=== PATIENT | male | born 1975 | race Caucasian/White ===

== ENCOUNTER 2017-05-04 22:17 | Emergency (ER) | payer OTHER ==
[2017-05-04 22:30] VITALS: BP 116/74; PULSE 88; TEMP 98; BMI 28.2
[2017-05-04] MEDS ORDERED: KETOROLAC TROMETHAMINE 30 MG/1 ML VIAL IVPUSH ONE (23:21)
[2017-05-04] MEDS ORDERED: SODIUM CHLORIDE 0.9% 500 ML INFUS.BAG IV ONE (23:21)
--- NOTE | 2017-05-04 23:58 | PDOC ---
History of Present Illness - History of Present Illness Initial Comments: 05/04/17 23:51 Patient is a 41 year old male with a history of sickle cell who presents with left sided chest pain following a mechanical fall. The patient reports slipping on water earlier today and falling onto his left chest. He denies any loss of consciousness or other injuries besides sharp left sided chest and back pain worse with coughing. He tried some ibuprofen at home for pain with some relief. He reports that he has never had a pain crisis or acute chest and that he has a high hemoglobin. <Braulio Fuentes - Last Filed: 05/05/17 02:54> <Ashley Miranda - Last Filed: 05/05/17 20:16> - General Chief Complaint: Pain Stated Complaint: L SIDED PAIN S/P FALL Time Seen by Provider: 05/04/17 22:29 Past History - Past Medical History Other medical history: Sicle cell - Psycho/Social/Smoking Cessation Hx Suicidal Ideation: No Smoking History: Never smoked Information on smoking cessation initiated: No Hx Alcohol Use: No Drug/Substance Use Hx: No Substance Use Type: None <Braulio Fuentes - Last Filed: 05/05/17 02:54> <Ashley Miranda - Last Filed: 05/05/17 20:16> - Past Medical History Allergies/Adverse Reactions: Allergies Allergy/AdvReac Type Severity Reaction Status Date / Time No Known Allergies Allergy Verified 05/04/17 22:26 Home Medications: Ambulatory Orders Oxycodone HCl/Acetaminophen [Percocet 5/325 -] 1 tab PO Q6H #14 tablet MDD 4 Review of Systems - Review of Systems Constitutional: No: Chills, Fever HEENTM: No: Recent change in vision Respiratory: No: Cough, Shortness of Breath Cardiac (ROS): Yes: Chest Pain. No: Palpitations ABD/GI: No: Constipated, Diarrhea, Nausea, Vomiting : No: Dysuria Musculoskeletal: Yes: Back Pain Integumentary: No: Rash Neurological: No: Headache, Numbness, Tingling, Weakness <Braulio Fuentes - Last Filed: 05/05/17 02:54> *Physical Exam - Vital Signs Last Vital Signs Temp Pulse Resp BP Pulse Ox 98.0 F 88 19 116/74 99 05/04/17 22:27 05/04/17 22:27 05/04/17 22:27 05/04/17 22:27 05/04/17 22:27 - Physical Exam Comments: 05/05/17 00:03 General Appearance: Nourished. No Apparent Distress HEENT: No Pharyngeal Erythema, Tonsillar Exudate, Tonsillar Erythema Respiratory/Chest: Lungs Clear, Normal Breath Sounds, Tenderness to palpation of left chest and back between the 3rd and 8th ribs. No Crackles, Rales, Rhonchi, Wheezing Cardiovascular: Regular Rhythm, Regular Rate. No Murmur, Gallop/S3, Gallop/S4 Gastrointestinal/Abdominal: Normal Bowel Sounds, Soft. No Guarding, Rebound, Tenderness Extremity: Normal Capillary Refill Integumentary: Normal Color, Dry, Warm Neurologic: Fully Oriented, Alert, Normal Mood/Affect, Normal Response <Braulio Fuentes - Last Filed: 05/05/17 02:54> - Vital Signs Last Vital Signs Temp Pulse Resp BP Pulse Ox 98.0 F 88 19 116/74 99 05/04/17 22:27 05/04/17 22:27 05/04/17 22:27 05/04/17 22:27 05/04/17 22:27 <Ashley Miranda - Last Filed: 05/05/17 20:16> ED Treatment Course - LABORATORY CBC & Chemistry Diagram: 05/05/17 00:19 <Braulio Fuentes - Last Filed: 05/05/17 02:54> - LABORATORY CBC & Chemistry Diagram: 05/05/17 00:19 - ADDITIONAL ORDERS Additional order review: 05/05/17 00:19 RBC 5.41 MCV 77.1 L MCHC 32.8 RDW 14.5 MPV 10.2 Neutrophils % 67.7 Lymphocytes % 24.4 Monocytes % 6.3 Eosinophils % 1.2 Basophils % 0.4 - RADIOLOGY Radiology Studies Ordered: Category Date Time Status RIBS-LEFT SIDE [RAD] Stat Radiology 05/05/17 01:53 Completed - Medications Given in the ED: ED Medications Discontinued Medications Generic Name Dose Route Start Last Admin Trade Name Freq PRN Reason Stop Dose Admin Ketorolac Tromethamine 30 mg 05/04/17 23:21 05/05/17 00:18 Toradol Injection - IVPUSH 05/04/17 23:22 30 mg ONCE ONE Administration Oxycodone/Acetaminophen 1 combo 05/05/17 02:32 05/05/17 02:55 Percocet 5/325 - PO 05/05/17 02:33 1 combo ONCE ONE Administration Sodium Chloride 1,000 ml 05/04/17 23:21 05/05/17 00:18 Normal Saline - IV 05/04/17 23:22 1,000 ml ONCE ONE Administration <Ashley Miranda - Last Filed: 05/05/17 20:16> Medical Decision Making - Medical Decision Making 05/05/17 00:04 Patient is a 41 year old male who presents with left-sided chest pain following a mechanical fall. Given the patient's physical exam, we will obtain a radiograph to evaluate for fractures. Given the patient's history of sickle cell, we will also obtain a set of labs including a cbc, reticulocyte count to evaluate. 05/05/17 02:54 Preliminary read on the radiograph show no fractures. The patient likely sustained a rib contusion. We discussed the results with the patient and feel comfortable discharging the patient with follow up with his primary care provider. The patient is agreeable with the plan. <Braulio Fuentes - Last Filed: 05/05/17 02:54> - Medical Decision Making 05/05/17 20:14 PT SEEN AND EXAMINED WITH THE RESIDENT; I AGREE WITH THE ABOVE EXAM AND PLAN FOR THE PATIENT. 05/05/17 20:15 PT HAS A HISTORY OF SICLE CELL; HOWEVER, HE HAS NORMAL HB LEVELS. RETIC COUNT IS NOT TOO HIGH; HE HAS NEVER BEEN TO OUR HOSPITAL BEFORE, A RESULT, I SENT A SICKLE CELL SCREEN TO DOCUMENT WHAT TYPE OF SICKLE CELL DISEASE HE HAS. HIS MOM TELLS ME THAT HE HAS SS DISEASE. <Ashley Miranda - Last Filed: 05/05/17 20:16> *DC/Admit/Observation/Transfer - Attestations Physician Attestion: 05/05/17 02:43 I, Dr. Braulio Fuentes, attest that this document has been prepared under my direction and personally reviewed by me in its entirety. I further attest, that it accurately reflects all work, treatment, procedures and medical decision -making performed by me. <Braulio Fuentes - Last Filed: 05/05/17 02:54> <Ashley Miranda - Last Filed: 05/05/17 20:16> Diagnosis at time of Disposition: Rib contusion Qualifiers: Encounter type: initial encounter Laterality: left Qualified Code(s): S20.212A - Contusion of left front wall of thorax, initial encounter - Discharge Dispostion Disposition: HOME Condition at time of disposition: Improved - Prescriptions Prescriptions: Oxycodone HCl/Acetaminophen [Percocet 5/325 -] 1 tab PO Q6H #14 tablet MDD 4 - Referrals Referrals: STAFF,NOT ON [Primary Care Provider] - - Patient Instructions Printed Discharge Instructions: DI for Rib Contusion Additional Instructions: Please return to the ER if you experience concerning or worsening symptoms. Please follow up with your primary care provider to discuss your ER visit.
[2017-05-05] MEDS ORDERED: KETOROLAC TROMETHAMINE 30 MG/1 ML VIAL ONE (00:04)
[2017-05-05 00:44] LABS: BASOPHIL 0.4 % (0-2.0); EOSINOPHIL 1.2 % (0-4.5); MCH 25.3 pg (25.7-33.7); MCHC 32.8 g/dl (32.0-35.9); MEAN CELL VOLUME 77.1 fl (80-96); MEAN PLT VOLUME 10.2 fl (7.5-11.1); NEUTROPHILS 67.7 % (42.8-82.8); PLATELET COUNT 190 K/MM3 (134-434); RDW 14.5 % (11.9-15.9); WHITE BLOOD COUNT 10.5 K/mm3 (4.0-10.0)
[2017-05-05] MEDS ORDERED: OXYCODONE/APAP 5/325MG COMBO TABLET PO ONE (02:32)
[2017-05-05] MEDS ORDERED: OXYCODONE/APAP 5/325MG COMBO TABLET ONE (02:53)
[2017-05-09 16:26] LABS: Hgb A2 3.5 % (0.7-3.1)
== END 2017-05-05 03:38 | disposition home or self-care (01) ==
LOC: JER 22:17
PROC: 3E0333Z Introduction of Anti-inflammatory into Peripheral Vein, Percutaneous Approach (ICD-10-PCS; principal; 2017-05-04)
DX: S20.212A Contusion of left front wall of thorax, initial encounter (principal); W01.0XXA Fall on same level from slipping, tripping and stumbling without subsequent striking against object, initial encounter; Y93.89 Activity, other specified; Y92.018 Other place in single-family (private) house as the place of occurrence of the external cause
CPT/HCPCS: 36415; 71101-TC; 83021; 85025; 85044; 85660; 99283-25